=== PATIENT | male | born 1980 | race Caucasian/White ===

== ENCOUNTER → 2017-01-11 | Outpatient (CLI) | payer BC ==
[2017-01-11 14:29] LABS: ALBUMIN 4.4 G/DL (3.5-5.0); ALBUMIN/GLOBULIN RATIO 1.6 RATIO (1.1-2.2); ALKALINE PHOSPHATASE 57 U/L (38-126); ALT (SGPT) 44 U/L (21-72); AST (SGOT) 31 U/L (17-59); TOTAL PROTEIN 7.2 G/DL (6.3-8.2)
[2017-01-11 16:06] LABS: THYROID STIM HORMONE-TSH 0.03 MIU/L (0.47-4.68)
[2017-01-14 05:50] LABS: FREE T4 (FREE THYROXINE)-BATCH 1.02 NG/DL (0.78-2.19)
[2017-01-14 11:30] LABS: T3 FREE - BATCH 3.31 PG/ML (2.77-5.27)
== END ==
LOC: LAB 14:01
PROVIDERS: ATTEND Physician Assistant Medical
DX: E05.90 Thyrotoxicosis, unspecified without thyrotoxic crisis or storm (principal); R17 Unspecified jaundice
CPT/HCPCS: 36415; 80076; 84439; 84443; 84481

== ENCOUNTER → 2017-01-24 | Outpatient (CLI) | payer BC ==
--- NOTE | 2017-01-24 09:15 | DI ---
Indication: ITS.REASON: R17 ELEVATED BILIRUBIN PROCEDURE: US LIVER (HEPATIC): Encounter: Initial Comparison: None Technique: Grayscale and color Doppler sonographic imaging of the right upper quadrant of the abdomen was performed. Findings: Hepatic parenchyma is homogeneous without evidence for focal mass. The gallbladder shows a 1.3 cm shadowing gallstone in the gallbladder neck with wall thickening at 3.6 mm. Sonographic Vasquez's sign was reportedly negative. There is scattered echogenic gallbladder sludge present as well. Both the intra and extrahepatic biliary system are of normal caliber with the common duct measuring 4 mm in dimension. Visualized portions of the head and body of the pancreas are unremarkable. The right kidney is present without collecting system dilatation. The right kidney measures 10 cm in length. Impression: Acute cholecystitis. .
== END ==
LOC: IMA 07:27
PROVIDERS: ATTEND Physician Assistant Medical
DX: K80.00 Calculus of gallbladder with acute cholecystitis without obstruction (principal); R17 Unspecified jaundice